=== PATIENT | male | born 1985 | race Caucasian/White ===

== ENCOUNTER 2016-06-22 13:14 | Inpatient (IN) | payer OTHER ==
[~2016-06-22] VITALS: Ht 170.2 cm; Wt 81.9 kg
--- NOTE | ~2016-06-22 | INDIVTXPLN ---
"PATIENT: EMELY BETHEA | | [facility] UNIT #: [id number] | [address] AGE/SEX: 31 M : 81 | [address] | [place] [id number] ADMIT/REG DATE: 06/22/16 | [facility] | ADTC | Individualized Treatment Plan Date: 06/29/16 Problem Statement/Issue Identified: Client has learned to deny or stuff feelings; needs to learn to identify and process feelings in a clean/sober manner. Goal: Client will learn how to identify and express feelings in a healthy, clean/sober manner. Objectives/Activities to achieve goal: 1. Client is to write each of his parents a feelings letter, separately, and process them with counselor. Due Date:07/04/16 Complete: Incomplete: 2. Client is to write his a feelings letter, process it with counselor and in family group. Due Date:07/04/16 Complete: Incomplete: Client signature Date Counselor signature Date Outcome/Measurement of Progress Towards Goal: Counselor's signature Date "
--- NOTE | ~2016-06-22 | INDIVTXPLN ---
"PATIENT: EMELY BETHEA | | [facility] UNIT #: [id number] | [address] AGE/SEX: 31 M : 81 | [address] | [place] [address] ADMIT/REG DATE: 06/22/16 | [facility] | Individualized Treatment Plan Date: 06/28/16 Problem Statement/Issue Identified: Client drank after getting angry, even though he is on probation, and did not reach out to anyone for help. Goal: Client will learn how to identify negative consequences of his drinking, attend AA/NA meetings, and meet men in recovery. Objectives/Activities to achieve goal: 1. Client is to complete the How To Get Started packet, process it with counselor and selected pages in group. Due Date: 07/02/16 Complete: Incomplete: 2. Client is to complete Step 1, process it with counselor and selected pages in group. Due Date:07/07/16 Complete: Incomplete: 3. Client is to attend AA/NA meetings, ask for and get at least 5 names and numbers of men in recovery and share that list with counselor. Due Date:07/17/16 Complete: Incomplete: Client signature Date Counselor signature Date Outcome/Measurement of Progress Towards Goal: Counselor's signature Date "
--- NOTE | ~2016-06-22 | INDIVTXPLN ---
"PATIENT: EMELY BETHEA | | [facility] UNIT #: [id number] | [address] AGE/SEX: 31 M : 81 | [address] | [place] [phone] ADMIT/REG DATE: 06/22/16 | ROOM: [facility] LOC: ADTC | ADTC | Individualized Treatment Plan Date: 07/12/16 Problem Statement/Issue Identified: Client needs to identify relapse warning signs, which may include control issues, stinking thinking and not being able to set boundaries, and develop a plan to deal with them as they arise. Goal: Client will learn how to take a look at his control issues, stinking thinking, as well as to learn to set boundaries and identify if any of these are relapse triggers and make a plan of how to avoid them. Objectives/Activities to achieve goal: 1. Client is to read and highlight the Letting Go of the Need to Control, Stinking Thinking and Arturo Baby booklets, and process what he learns from all of them with counselor. Due Date:07/20/16 Complete: Incomplete: 2. Client is to read and highlight all he can relate to in the Boundaries booklet, and process what he learns with counselor. Due Date:07/20/16 Complete: Incomplete: 3. Client is to read and highlight all he can relate to in the Dry Drunk Syndrome and Recovery of Chemically Dependent Families, as well as to complete the Relapse Prevention packet and process them with counselor. Due Date:07/20/16 Complete: Incomplete: Client signature Date Counselor signature Date Outcome/Measurement of Progress Towards Goal: Counselor's signature Date "
--- NOTE | ~2016-06-22 | RESCARESUM ---
"PATIENT: EMELY BETHEA M | | [facility] UNIT #: [id number] | [address] AGE/SEX: 31 M : 81 | [address] | [place] [phone] ADMIT/REG DATE: 06/22/16 | ROOM: [facility] LOC: ADTC | ADTC | Summary of Residential Care Primary Counselor: Agustina HAMLIN Date of Admission: 06/22/16 Date of Discharge: 07/20/16 Referral Source: Geothermal Field Technician, Maria G Griffin Primary Care Provider Prior to Admission: Self Admitting Diagnosis: F10.20 Alcohol Use Disorder, Severe; Z720 Tobacco Use; History of ADHD, per DR. [facility] Discharge Diagnosis: Same Goals Achieved: Emely struggled staying focused on his treatment, as he had outside people influencing him. He did eventually complete his initial paperwork, including the How to Get Started in Treatment, Step 1, and he asked for names and numbers of men in recovery. He stated he wrote feelings letters, read and highlighted several packets and booklets given to him to help him learn how to let go of control, and learn about changing his character flaws, however, we had so many other issues to deal with, none of these were ever processed. He worked on recovery maintenance, as well. Continued Obstacles to Sobriety/Relapse Issues: Self-will run riot, being controlling, relationships, not going to meetings or aftercare, not getting and calling a sponsor on a regular basis, not dealing with feelings, and not learning to work a good, strong program of recovery. Family Issues Addressed: We had a session with his , however, it was not productive, as they both have issues they need to work on in some type of treatment program. She also attended family education, however, at one point, we had to tell her to stop coming up here, not to come to any more meetings, and we took all visits and calls away, so he would be able to focus on himself, instead of her. Y Individual Therapy Y Group Therapy Y Educational Series on Substance Abuse Y Parents/Significant Others Attended Family Program N Acute Medical Problems During the Course of Treatment N Transferred to Hospital During the Course of Treatment Y Accepting of Substance Abuse Problem N Non-accepting of Substance Abuse Problem N Required Psychological or Psychiatric Consultation During the Course of Treatment Completed AA Step # 1 During This Level of Care Significant Incidences During Treatment: Emely was focused on his and his jainism, and it took his focus away from his treatment. His last weekend, we had to take away his PATIENT: EMELY BETHEA M | | [facility] UNIT #: [id number] | [address] [place] [address] AGE/SEX: 31 M : 81 | [address] | [place] [address] ADMIT/REG DATE: 06/22/16 | ROOM: [facility] LOC: [facility] | [facility] | Summary of Residential Care visits and calls, so he could focus on himself instead of them. Reason For Discharge: Y Completed Residential TX Goals and Ready For Next Level of Care N Left Tx Against Medical Advice/Treatment Goals Not Complete N Completed Residential Tx Goals But Refusing Continuing Care Recommendations N Discharged Due to Noncompliance/Treatment Goals not Completed N Discharged Earlier Than Planned Due to: Continuing Care Plan/Recommendations: N Intensive Partial Care Y Sponsor N Partial Care Y AA Meetings/NA Meetings Y Outpatient N Co-dependency Services N Therapeutic Community N 1/[address] N [address]/ [address] House N Mental Health Therapy N Marriage Counseling N Other Specific Continuing Care Plan: It is recommended that Emely attend aftercare here at [facility], beginning 07/26 @ 4:00 with Nuris Chanel, and go to group at 5:30 with Ruddy. It is further recommended that he attend 3-5 AA/NA meetings per week, get and call a sponsor on a regular basis, and learn how to work a strong program of recovery. PRIMARY COUNSELOR: BOUBACAR Barbosa"
--- NOTE | ~2016-06-22 | CLPRLASSUM ---
PATIENT: EMELY BETHEA | | [facility] UNIT #: [id number] | [address] AGE/SEX: 31 M : 81 | [address] | [place] [address] ADMIT/REG DATE: 06/22/16 | ROOM: [facility] LOC: ADTC | ADTC | Client Problem List/Assessment Summary Date: 06/28/16 Problems identified by the client: Client reported he drank after getting angry and being on probation. Problems identified by significant others: Same Client's Strengths: Client identified his strengths as: He is a good listener, caring and likes to help people. Problem List: Code: T Client needs to identify relapse warning signs and develop a plan to deal with them as they arise. Code: T Client does not "reach-out to others for help" and instead resumes using alcohol &/or drugs. Code: T Client needs to become familiar with basics of recovery as he relapsed and will benefit from working STEP 1 again. Code: T Client is experiencing family &/or significant other discord and distancing as a result of past alcohol &/or drug usage. Code Taylor: T: to be addressed during course of treatment O: problem noted, expected to resolve itself with abstinence--specific tx plan not required R: problem noted, will be referred upon discharge PRIMARY COUNSELOR: BOUBACAR Barbosa
--- NOTE | ~2016-06-22 | TXPLANREV ---
"PATIENT: EMELY BETHEA | | [facility] UNIT #: [id number] | [address] AGE/SEX: 31 M : 81 | [address] | [place] [phone] ADMIT/REG DATE: 06/22/16 | [facility]TC | Treatment Plan/Staffing Review Date: 07/18/16 Treatment plan was reviewed and determined appropriate as written: Yes Treatment plan was reviewed and the following changes/addition/deletions are necessary: Client is to continue working on treatment plan assignments. He is finishing up with his Relapse Prevention packet. Discharge plans were reviewed and determined appropriate as previously documented: Yes Discharge plans were reviewed and determined to be as follows: Client will be going to an apartment, attending aftercare here with Nuris Chanel and will be recommended to attend 3-5 AA/NA meetings per week, get and call a sponsor on a regular basis and work a strong program of recovery. Other pertinent issues discussed during this staffing review include: None Staff Present: Robert Costa PRIMARY COUNSELOR: BOUBACAR Barbosa Client Signature Counselor Signature Date Time "
--- NOTE | ~2016-06-22 | TXPLANREV ---
"PATIENT: EMELY BETHEA | | [facility] UNIT #: [id number] | [address] AGE/SEX: 31 M : 81 | [address] | [place] [phone] ADMIT/REG DATE: 06/22/16 | [facility] | [facility] | Treatment Plan/Staffing Review Date: 07/05/16 Treatment plan was reviewed and determined appropriate as written: Yes Treatment plan was reviewed and the following changes/addition/deletions are necessary: Client is to continue working on treatment plan assignments. He is now writing feelings letters. Discharge plans were reviewed and determined appropriate as previously documented: No Discharge plans were reviewed and determined to be as follows: Client plans to return home to his , and will be recommended to do aftercare here with us, attend AA/NA meetings, as well as to get and call a sponsor on a regular basis. Other pertinent issues discussed during this staffing review include: None at this time. Staff Present: Nuris Rosas PRIMARY COUNSELOR: BOUBACAR Barbosa Client Signature Counselor Signature Date Time "
--- NOTE | ~2016-06-22 | TXPLANREV ---
"PATIENT: EMELY BETHEA | | [facility] UNIT #: [id number] | [address] AGE/SEX: 31 M : 81 | [address] | [place] [phone] ADMIT/REG DATE: 06/22/16 | ROOM: [facility] LOC: ADTC | ADTC | Treatment Plan/Staffing Review Date: 07/11/16 Treatment plan was reviewed and determined appropriate as written: Yes Treatment plan was reviewed and the following changes/addition/deletions are necessary: Client is to continue working on treatment plan assignments. He is finishing up with feelings letters and will begin working on relapse prevention. Discharge plans were reviewed and determined appropriate as previously documented: Yes Discharge plans were reviewed and determined to be as follows: Client will return to his home, do aftercare here, be recommended to attend 3-5 AA/NA meetings, get and call a sponsor on a regular basis and learn how to work a strong program of recovery. Other pertinent issues discussed during this staffing review include: Client has struggled with whether or not to stay with his , and at this time, plans to stay with her and work on their marriage. Staff Present: Nuris Rosas PRIMARY COUNSELOR: BOUBACAR Barbosa Client Signature Counselor Signature Date Time "
--- NOTE | 2016-06-22 16:14 | NUR ---
ADMISSION NOTE Rights/Responsibilities: Copy given and explained to client. Signed and accepted by client. Client oriented to physical lay out of the ADTC unit, given Big Book and admission packet. A Bakari was assigned. Anival Client is a 31yr old male. Referred by court. Lives in [place], [place]. Brought to tx by s/o. DOC alcohol, last used 05/21/16. No allergies, No meds. S/O will participate in tx. Was searched and no contraband found. Initial paperwork given and guidelines gone over. Doctor has been notified.
--- NOTE | 2016-06-22 22:19 | NUR ---
Tech note : Client went for a walk and worked on some crafts. Client celebrated a tech's birthday and attended an onsite NA meeting. He was checked into his room, saw the DR and gave his first intro.
--- NOTE | 2016-06-23 04:55 | NUR ---
Bed note: Client was moitionless with eyes closed at all bed checks.
--- NOTE | 2016-06-23 12:19 | NUR ---
Group 1.5 Hr Rtio 2:20/Topics today were orientating a new client to group rules and goals. Relapse prevention was also a topic. Client was orientatedto group rules and goals. He proceded to blame his for all his problems as he manges money well and she dosent and a lot of other things other than looking at his own stuff. He appears to like being the marter and everyond should feel sorry for him. He also worries about what people think about him.
--- NOTE | 2016-06-23 14:00 | NUR ---
INITIAL SESSION 1 HR: Clt was oriented to tx plans, schedules and what to expect from tx, this counselor and the program. He has been here previously, and is now on probation for his 4th offense DUI. He is to a woman 12 yrs younger than he and isn't sure that was his best choice. He also quoted several Bible passages and stated going to judaism 3 times a week was keeping him sober, but when asked how often he was drinking he stated he wasn't sure, but he wasn't able to remain sober for any longer than a couple-4 months. He is to be work on initial paperwork.
--- NOTE | 2016-06-23 14:34 | NUR ---
Tech Note: Client attended Spiritual Enrichment in the morning and went for an outdoor walk in the afternoon. Client stated that he is working on journaling.
--- NOTE | 2016-06-23 15:50 | NUR ---
Education 1 Hour: Client heard from a recovery speaker who shared his experience, strength and hope.
--- NOTE | 2016-06-23 16:22 | NUR ---
Step education/ Focus was on step 10 "continued to take personal inventory and when we were wrong promply admitted it." Gave them a set of questions to answer on paper and then as a group answered the first 3 and the rest each person shared what they had written. One of the questions was when was the last time I caught myself doing or saying something I did not feel good about? This client participated. He shared how his whole life he has been surrounded by negative people but he is learning to be positive. He was happily surprised when he came here that others were looking for positive also.
--- NOTE | 2016-06-23 18:31 | NUR ---
Education: 1 Hour. Clients watched Picking up the Pieces for education.
--- NOTE | 2016-06-23 23:16 | NUR ---
tech note: client went on walk for recreation,participated in Guided Meditation & attended onsite AA meeting. SE: got sponsor @ AA meeting.
--- NOTE | 2016-06-24 04:06 | NUR ---
Bed note: Client was moitionless with eyes closed at all bed checks.
--- NOTE | 2016-06-24 10:56 | NUR ---
FAMILY CONTACT: Clanton's was called. She plans to come to visit, to family [facility] and we did discuss her doing codep tx. Will look into some funding for her.
--- NOTE | 2016-06-24 11:30 | NUR ---
GROUP 1.5 HRS. 1:10 Group discussion included cravings and reservations as well as consequences of use. Peers processed from the HOW TO GET STARTED IN TREATMENT assignment. This client is very verbal and repeatedly brings topic back to himself. He quoted the bible and is noted to be carrying a bible rather than his big book. He was redirected to put his journal now at 1100 as he was looking at his schedule.
--- NOTE | 2016-06-24 13:00 | NUR ---
PEER REVIEWS 1 HR: Clt participated in peer review process and was able to give open and honest feedback to those receiving a review.
--- NOTE | 2016-06-24 13:28 | NUR ---
Tech Note: Client went on group walk for recreation. Clt is working on journaling and Relapse Prevention.
--- NOTE | 2016-06-24 23:01 | NUR ---
TECH NOTE: Client participated in reading guidelines, watched tv/movies. attended optional off site AA meeting SE: talk with peers
--- NOTE | 2016-06-25 04:47 | NUR ---
BED NOTE: Client was in bed, motionless with eyes closed all three bed checks.
--- NOTE | 2016-06-25 16:28 | NUR ---
Tech Note: Client is working on Getting Started and had a visitor. Clt was late to morning Community Meeting.
--- NOTE | 2016-06-25 23:35 | NUR ---
TECH NOTE: Client played Catch Phrase for REC, attended off site AA meeting, and watched TV/movies. Client was late to community meeting and walk to meeting. SE: visits
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
--- NOTE | 2016-06-26 04:18 | NUR ---
Bed Note: Clt lay motionless in bed with eyes closed showing no distress at last two bed checks. The first bed check clt was awake talking on phone to per counselor.
--- NOTE | 2016-06-26 15:58 | NUR ---
Tech Note: Client participated in Big Book Study and stated that he is working on, "How to Get Started in Treatment."
--- NOTE | 2016-06-26 22:41 | NUR ---
Client attended the A.A.Panel and participated in Community Clean. Client also attended the MONITOR AND STORAGE BIN TENDER meeting. SE:Answered Prayers
--- NOTE | 2016-06-27 04:02 | NUR ---
BED NOTE: Client was in bed, and motionless at all three bed checks.
--- NOTE | 2016-06-27 10:03 | NUR ---
Tech notes: Client is working on BB
--- NOTE | 2016-06-27 11:30 | NUR ---
AM Group 1.5hr/ 21:2 Clients all read The Wall an allegory and discussed how it related to the 12 steps/recovery. Each client aniyah and shared their wall.
--- NOTE | 2016-06-27 13:59 | NUR ---
Educational note: Client attended speaker for educationLaci
--- NOTE | 2016-06-27 16:00 | NUR ---
RECOVERY 101 1 HR/ Clients all filled out consequences list to look at each chemical they have ever used and how many consequences were experiences with each drug. Many shared what they learned from this and their top 3 consequences, they also discussed early stage symptoms of their addiction. Counselor asked the group what would be a definition that includes all stages and this was discussed as well at stages of Denial, Anger, Compliance/defiance, admittance, acceptance and Surrender.
--- NOTE | 2016-06-27 20:38 | NUR ---
Education: 1 Hour. Client attended lecture on "Adult Children of Alcoholics" presented by staff.
--- NOTE | 2016-06-27 22:57 | NUR ---
Tech Note: Client played a game for rec and attended the on unit N.A.Meeting. SE:_Reading in the Big Book.
--- NOTE | 2016-06-28 04:17 | NUR ---
Bed Note: Client was in bed, and motionless at all three bed checks.
--- NOTE | 2016-06-28 13:11 | NUR ---
Tech Note: Nutritional Services presented information for the 1:00 speaker meeting. Client is working on the Big Book.
--- NOTE | 2016-06-28 14:15 | NUR ---
GROUP 1.5 HRS. 1:10 Clients oriented new peer to purpose and rules of group. Discussion included step 1 assignment and good-bye letter to addiction. This client did not participate or offer any feedback.
--- NOTE | 2016-06-28 16:25 | NUR ---
Relapse Prevention, 04/08, 1.0 hours, Client attended and actively participated in relapse prevention education which focused on top 5 relapse triggers and how to avoid them.
--- NOTE | 2016-06-28 17:35 | NUR ---
Education Note: Topic was "Berwick From Shame" presented by Ely.
--- NOTE | 2016-06-28 22:48 | NUR ---
TECH NOTE: Client did crafts/beads for REC and attended on site AA meeting. S/O was at AA meeting SE: AA meeting
--- NOTE | 2016-06-29 04:00 | NUR ---
BED NOTE: Client was in bed, motionless with eyes closed all bed checks.
--- NOTE | 2016-06-29 10:43 | NUR ---
Tech notes: Client is working on Getting started
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
--- NOTE | 2016-06-29 16:00 | NUR ---
Education 1 Hour: Client watched the video, "Marijuana" by Jerry Kim.
--- NOTE | 2016-06-29 17:23 | NUR ---
SPIRITUAL EDUCATION; Client's took TOWARD SPIRITUALITY BOOKS again this week and improved their presentations took on new participants to replace those who weren't here this week, and presented their refined skits to those staff available to watch. Excellent presentations!
--- NOTE | 2016-06-29 19:06 | NUR ---
Education 1HR: Clt attended lecture given by counselor on boundaries.
--- NOTE | 2016-06-29 22:11 | NUR ---
Tech note : Client went for a long walk for rec and attended an onsite NA meeting. SE: Education
--- NOTE | 2016-06-30 04:04 | NUR ---
Bed note: Client was in bed motionless, with eyes closed at all bed checks.
--- NOTE | 2016-06-30 11:30 | NUR ---
AM GRP 1.5 HRS, Ratio 1:10/ Clt sat quietly, until he became angry and popped off at a peer for talking to much. He got very mouthy with him, telling the peer he needs to shut the "f" up, give others a chance to talk and stop asking so many questions. Clt then went on to give everyone else feedback.
--- NOTE | 2016-06-30 13:00 | NUR ---
FAMILY SESSION 1 HR: Clt and his were present. They struggle w/ interrupting each other, and does see they heed professional help. His is planning to have an eval for codep done, and she is in dire need of it. They interrupted each other, they talked over each other, so heard they need to work on communication skills.
--- NOTE | 2016-06-30 15:20 | NUR ---
Tech Note: Client participated in Spiritual Enrichment in the morning and went for an outdoor walk in the afternoon. Client followed programming.
--- NOTE | 2016-06-30 17:45 | NUR ---
FAMILY EDUCATION 3 hrs. Client was accompanied by his S/O. They took part in the discussion on the disease concept and the progression and consequences.
--- NOTE | 2016-06-30 19:11 | NUR ---
Education 1HR: Clt watched half of video "Pleasures Unwoven" with staff present.
--- NOTE | 2016-06-30 23:01 | NUR ---
Tech note: Clt played a game for rec, attended GM and onsite AA mtg. Clt had clothes brought in by s/o. SE was family grp
--- NOTE | 2016-07-01 04:23 | NUR ---
Bed Note: Clt lay motionless in bed with eyes closed showing no distress at all bed checks.
--- NOTE | 2016-07-01 12:53 | NUR ---
GROUP 1.5 HR/ 11:1 Clients all heard peers share GS/Step 1 packets and all introduced selves and went over group rules for newcomers. This client did give good feedback, not pushing anglican but relating to addiction.
--- NOTE | 2016-07-01 12:59 | NUR ---
Tech Note: Client is working on Feelings Letters.
--- NOTE | 2016-07-01 13:00 | NUR ---
PEER REVIEWS 1 HR: Clt participated in peer reviews and took a risk to give open and honest feedback to those receiving a review.
--- NOTE | 2016-07-01 15:31 | NUR ---
Education Note: Client watched 2nd half of Pleasure Unwoven.
--- NOTE | 2016-07-01 22:15 | NUR ---
Tech note : Client talked on the phone, watched tv and played games with peers.
--- NOTE | 2016-07-02 04:07 | NUR ---
Bed note: Client was in bed with eyes closed and no distress at all bed checks.
--- NOTE | 2016-07-02 12:09 | NUR ---
IS 1 HR: Clt asked about feelings letters, stating his letter to his is about 10 pages long. He heard to own his behavior, own his addiction, and he can mention some things about hers, but all that he wants to say to her will need to be done in session. He rambles and goes on and on about every thing, so had to be stopped. He shared about his exwife and this not getting along, and that he is 12 yrs older than his now , so he feels like her father. He heard we will get her back in for another family session.
--- NOTE | 2016-07-02 16:24 | NUR ---
Tech Note: Client attended N.A.Panel and is working on FL's. Client had a visit today as well.
--- NOTE | 2016-07-02 22:14 | NUR ---
Tech note : Client worked on [employer], [employer] or watched sports for rec this evening. Client walked to an offsite AA meeting, his S/O also attended the meeting.
--- NOTE | 2016-07-03 04:05 | NUR ---
Bed note: Client was in bed with eyes closed with no distress at all bed checks
--- NOTE | 2016-07-03 15:25 | HP ---
ADMIT: 06/22/2016 RM/LOC: [facility] MR#: [id number] [id number] [place] [address] History and Physical SEX: M AGE: 31 : 1985 DATE OF SERVICE: CHIEF COMPLAINT: Alcohol dependency. HISTORY OF PRESENT ILLNESS: Emely is 31-year-old, , white male, admitted to residential level treatment at [facility]. He presents to treatment after recent charges in January 2016 for fourth offense DUI. He was amended to a third offense DUI. He was sentenced to 30 days in fpc which he has already completed. Completion of a residential level treatment program, probation, anger management, and was from his family. Emely's drug of choice on admission is alcohol. He first started drinking at 11 years of age with friends. In max high, he drank a couple of times over the summer. In high school, he states he never drank as he was in the [employer]. From [age], he would drink every weekend around a 12 pack to intoxication. Heaviest drinking was [age] when he would have around 18 beers or more on weekends. Described himself as a weekend binge drinker. He states he then got sober for about 9 months and relapsed on alcohol. He states for the last couple of years, he has been drinking more sporadically. His DUI occurred in January 2016. His last drink was 05/21/2016. No history of alcohol withdrawal seizures, DTs, or hallucinations are noted. Second drug of choice is denied. He denies any illicit drugs. PAST MEDICAL HISTORY: Operations none. Illnesses include ADHD when he was young. MEDICATIONS: None. ALLERGIES: INCLUDE SEASONAL. SOCIAL HISTORY: Is that of a 31-year-old male. He has been and once and has remarried. He has no children with his current and has one daughter with his ex-. He was a prior smoker but quit smoking on 05/27/2016. FAMILY HISTORY: Alcohol and marijuana in his father and his mother has a history of marijuana and methamphetamine dependency. His father is currently in recovery. REVIEW OF SYSTEMS: Negative. PHYSICAL EXAMINATION: VITAL SIGNS: He is 5 feet 7 inches with a weight of 81.9 kg, blood pressure 135/82 with a pulse of 63 and a temp of 95.1. GENERAL APPEARANCE: Is that of a 31-year-old male who is alert and oriented, in no acute distress. He is athletic-appearing. HEENT: Pupils are reactive. TMs normal. Throat normal. NECK: Normal. HEART: Regular without murmur. ADMIT: 06/22/2016 RM/LOC: [facility] MR#: [id number] [address] [place], [place] [id number] [place] [address] History and Physical SEX: M AGE: 31 : 1985 LUNGS: Clear. ABDOMEN: Soft, nontender, benign. GENITOURINARY: Deferred. RECTAL: Deferred. EXTREMITIES: No clubbing, cyanosis, or edema. NEURO: Normal including light touch, strength, DTRs. ASSESSMENT: 1. Alcohol use disorder, severe. 2. Tobacco use disorder, in remission. 3. History of attention deficit hyperactivity disorder. PLAN: We will place him on a multivitamin and thiamine given his history of alcohol abuse and dependency, place him on Claritin for seasonal allergies. We will proceed with drug and alcohol abuse dependency treatment and counseling. Further evaluation and management based on his course during hospitalization. Please see his hospital record for the details. Craig Soares MD/ kelechi JOB #: [id number] CC: Craig Soares, Attending Physician FAMILY PHYSICIAN, Family Physician
--- NOTE | 2016-07-03 16:29 | NUR ---
Tech Note: Client attended adventism in the morning and received a visit in the afternoon. Client stated that he is working on writing Feelings Letters.
--- NOTE | 2016-07-03 22:34 | NUR ---
tech note: Client attended onsite AA Panel & PROCEDURE TECH meeting.Client participated in Community Clean & watched tv. SE: visit.
--- NOTE | 2016-07-04 04:29 | NUR ---
tech note: client was motionless in no distress at all bed checks.
--- NOTE | 2016-07-04 10:16 | NUR ---
Tech Notes: Client is working on Fl's
--- NOTE | 2016-07-04 11:02 | NUR ---
Education Note: Client watched video for education today.
--- NOTE | 2016-07-04 12:55 | NUR ---
Morning Group, 03/31, 1.5 hours, Client attended and actively participated in group. Client shared how his christopher in God has led him to be a better person and the will to get help.
--- NOTE | 2016-07-04 19:14 | NUR ---
Education: 1 Hour. Client attended "Communications" lecture presented by staff.
--- NOTE | 2016-07-04 21:00 | NUR ---
FAMILY EDUCATION 3 HRS., GROUP 2 HRS. 1:6 Client was accompanied by his . They took part in the discussion on the family roles, codependency and detachment. Client related to family hero role. They processed feelings letters. shared example in her letter of when client was so drunk and sick she was afraid he might . She later went on to state that he is not alcoholic. She defines alcoholic as someone who drinks every day like her mother. Counselor and a couple of peers attemped to offer feedback but both client and his became defensive. One peer and another family member defended client. Client verbalizes that he is alcohlic. then states well she is also alcoholic and has been sober the same 43 days as client.
--- NOTE | 2016-07-04 23:30 | NUR ---
Client attended N.A.Meeting and had family SE:Family
--- NOTE | 2016-07-05 04:20 | NUR ---
Bed note: Client was in bed with eyes closed with no distress at all bed checks
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
--- NOTE | 2016-07-05 15:40 | NUR ---
Tech Note: Client participated in light stretching for monring exercise and went for an outdoor walk in the afternoon. Client stated that he is working on reading the BigBook.
--- NOTE | 2016-07-05 16:00 | NUR ---
IS 1 HR: Nhung was confronted on the way he caught me in the wheat asking when his next "anything with you..." is. He heard it came off very agressive. He denied he was being agressive, so heard to take a look at it. Processed nhung's BPS, and then he stated he is working on feelings letters, but doesn't know what to say to his Mom. He heard to just start writing and it will come to him.
--- NOTE | 2016-07-05 17:12 | NUR ---
Relapse Prevention, 04/08, 1.0 hours, Client attended and actively participated in relapse prevention education which focused on high risk situations.
--- NOTE | 2016-07-05 19:22 | NUR ---
Education note: 1 hour watched video "enabler".
--- NOTE | 2016-07-05 19:29 | NUR ---
education note: 1 hour lecture by [facility] on hiv/aid/std. plus clients wwere tested for HIV.
--- NOTE | 2016-07-05 22:07 | NUR ---
Tech note: Client went for a long walk for rec, participated in guided meditation and attended an onsite AA meeting.
--- NOTE | 2016-07-06 05:29 | NUR ---
Bed note : Client was in bed with eyes closed and no movement at all bed checks.
--- NOTE | 2016-07-06 12:27 | NUR ---
AM GROUP 11:1/1.5 HR: Client and peers helped to ORIENT A NEW PEER TO GROUP GUIDELINES, GOALS AND OBJECTIVES. Client and peers heard several individuals process assignments and some discussion on the disease concept. This client is quick to give feedback, some of which is on target but most of which comes across as "all knowing."
--- NOTE | 2016-07-06 13:24 | NUR ---
Tech Note: Outside speaker [place] spoke at 1300. Client attended and is working on a "vent letter".
--- NOTE | 2016-07-06 17:18 | NUR ---
SPIRITUAL EDUCATION 1 HR. Topics today were clarifying the differences between spirituality and church, and playing the spiritual challenge game where they are asked thought provoking open ended questions. It is meant to inspire spiritual line of thought.
--- NOTE | 2016-07-06 22:39 | NUR ---
Tech Note : Client participated in rec by playing catch phrase and attended an onsite NA meeting.
--- NOTE | 2016-07-06 23:34 | NUR ---
Education: 1 Hour. Client attended "Disease Concept" presented by counselor.
--- NOTE | 2016-07-07 05:35 | NUR ---
Bed Note: Client was motionless with eyes closed at all bed checks.
--- NOTE | 2016-07-07 10:39 | NUR ---
Tech Note: Client participated in light stretching for morning exercise. Client stated that he is working on writing Feelings Letters. Client's called the tech station at 0730 stating that she needed to talk to the cient and that it was an emergency. Counselor on duty gave permission for the call to be received. Client talked to his and then went to breakfast with the group.
--- NOTE | 2016-07-07 13:50 | NUR ---
PEER REVIEWS 1 HR: Clt participated in peer reviews and took a risk to give open and honest feedback to those receiving a review. The last half hour of group clients talked about loved ones and dying.
--- NOTE | 2016-07-07 15:47 | NUR ---
Education 1 Hour: Client heard from a member of the recovery community who shared his experience, strength and hope.
--- NOTE | 2016-07-07 16:31 | NUR ---
Step Education 1 hr/ Focus was on step 12 "having had a spiritual awakening", each person completed a set of questions on paper and then we discussed. This client participated.
--- NOTE | 2016-07-07 19:42 | NUR ---
Tech note: client was off the unit for [employer] banquet and speaker event
--- NOTE | 2016-07-08 11:30 | NUR ---
Group 1.5 hr/ 10:1 Clients all heard peers share feelings letters and this client was attentive, heard others talk about parents not being there for them. He also shared a letter to his mom, who was a meth addict and not their for them, client was tearful and forgives mom he voiced. Client also shared a letter to his dad making ammends for how his addiction disappointed and hurt his dad. Peers shared he is very spiritual and good for them to talk to (gali and rohit in group voiced appreciation)
--- NOTE | 2016-07-08 13:44 | NUR ---
Tech Note: Client with with group on an outdoor walk. Client is working on Feelings Letters.
--- NOTE | 2016-07-08 16:00 | NUR ---
Education Note: Client watched "How to Sabotage Your Treatment"
--- NOTE | 2016-07-08 16:35 | NUR ---
PEER REVIEWS 1.0 HR: Clt participated in peer reviews and took a risk to give open and honest feedback to those receiving a review.
--- NOTE | 2016-07-08 22:55 | NUR ---
TECH NOTE: Client participated in reading [employer], watched tv/movies. SE: Lunch
--- NOTE | 2016-07-09 04:04 | NUR ---
Bed Note: Clt lay motionless in bed with eyes closed showing no distress at all bed checks.
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
--- NOTE | 2016-07-09 15:02 | NUR ---
Tech Note: Client is working on the [employer] Book and had an appt. with his counselor. Clt had visits.
--- NOTE | 2016-07-09 22:54 | NUR ---
TECH NOTE: Client played a game for REC, attended off site AA meeting, watched TV/movies SE: visits
--- NOTE | 2016-07-10 04:46 | NUR ---
Bed Note: Clt lay motionless in bed with eyes closed showing no distress at all bed checks.
--- NOTE | 2016-07-10 15:18 | NUR ---
Tech Note: Client participated in [employer] and stated that he is working on writing a vent letter. Client attended the medical center and received a visitor.
--- NOTE | 2016-07-10 22:50 | NUR ---
Tech Note: Client attended A.A.Panel and participated in community clean. SE:Visitation
--- NOTE | 2016-07-11 04:50 | NUR ---
Client was motionless with eyes closed at all bed checks.
--- NOTE | 2016-07-11 10:19 | NUR ---
Tech notes: Client is working on Vent letter
--- NOTE | 2016-07-11 15:45 | NUR ---
Morning Group, 1.5 hours, 04/09 Clients all participated in 2 family sculptures with role-playing, feedback, and how they related.
--- NOTE | 2016-07-11 16:03 | NUR ---
RECOVERY EDUCATION 1 HR. Todays topic was on denial; good, bad, and levels, life problems being 85 percent of recovery, and distorted thinking patterns that can keep us stuck.
--- NOTE | 2016-07-11 16:29 | NUR ---
Education note: Client watched video "[address] [facility] [address]"
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
--- NOTE | 2016-07-11 18:41 | NUR ---
Education: 1 Hour. Client attended "Feelings" lecture given by staff.
--- NOTE | 2016-07-11 22:07 | NUR ---
Tech note: Client participated in rec by playing tribr outside. Client attended an onsite NA meeting.
--- NOTE | 2016-07-12 04:14 | NUR ---
BED NOTE: client was in bed, motionless with eyes closed all three bed checks.
--- NOTE | 2016-07-12 08:30 | NUR ---
COUNSELOR NOTE Clanton knocked on closed door, but heard this counselor was busy. He came back within the next half hour and knocked again, asking if this counselor is still busy, heard yes, but asked what he wanted. He wanted to tell me about his coming to see him, his Refrigeration Insulator convincing him he needs to not break up his marriage, etc. and left a love letter she had written to him. Nhung heard we will need to talk about it later.
--- NOTE | 2016-07-12 12:29 | NUR ---
A.M. 1.5 hr group/ratio 1:11/ Group heard a 2 getting started assignments and a feelings letter. Focus was on how our addiction affects kids and significant others, abuse, and how important it is to express feelings. This client shared feedback.
--- NOTE | 2016-07-12 14:00 | NUR ---
IS 1 HR: Nhung processed his Step 1, but his pages 10-11 were not specific. He had come last week and stated he needed to get away from his , then today stated his friends and dining server convinced him he needs to make his marriage work, so he's going to listen to what they are saying. Nhung was confronted on the fact that he flip flops and during the week he gains some clarity on his relationship then over the weekend goes back to listening to what they are telling him to do. He was asked what he's getting out of tx and and he immediately came up with a Bible verse, so heard tx isn't about the Bible, it's about the Big Book. Carlost heard he needs to keep his Bible in his room, and read his BB. He then heard staff isn't sure he's amenable to tx, and that we will be staffing him again about what needs to happen to him.
--- NOTE | 2016-07-12 16:14 | NUR ---
Relapse Prevention, 04/06 ratio, 1.0 hours, Client attended and actively participated in relapse prevention education which focused on personal reactions to high risk situtations such as personal reactions vs. personal responses, addictive thinking, irresponsible thinking, addictive behavior, irresponsible behavior, instant gratification, and emotional consequences to thoughts and actions.
--- NOTE | 2016-07-12 16:29 | NUR ---
Tech Note: Client listened to speaker Craig share his experience, strength and hope. Client is working on the Big Book.
--- NOTE | 2016-07-12 19:24 | NUR ---
Education : 1 hour lecture given by counselor on feelings.
--- NOTE | 2016-07-12 22:11 | NUR ---
Tech note: Client played catchphrase for rec, participated in guided meditation and attended AA meeting. SE:shukri w/counselor
--- NOTE | 2016-07-13 04:22 | NUR ---
Bed note: client was in bed with eyes closed and no distress at all bed checks.
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
--- NOTE | 2016-07-13 10:01 | NUR ---
Tech notes: Client is working on [employer] and lots more
--- NOTE | 2016-07-13 13:28 | NUR ---
Education note: Client watched video
--- NOTE | 2016-07-13 14:29 | NUR ---
Nhung's came to our unit asking to talk to someone. [facility] Accounting Coordinator was called. Accounting Coordinator asked the nurse to sit in on the session. She stated she visited clt's document review attorney and customs house broker. She said customs house broker is going to come a session with clt and his counselor. She quoted what the document review attorney said about the law of not being able to force into a [address]. I said we don't force anyone but do make recommendation and PO may requirement follow the recommendations. Encourage her to take care of self and follow through with eval. Asked her to not come on the unit for the rest of the week. Counselor will contact if visit allowed. Talked nhung has been distracted throughout his tx and focus more her that his addiction and needs for tx.
--- NOTE | 2016-07-13 16:21 | NUR ---
SPIRITUAL EDUCATION 1 HR. Todays topic was the ADDICTIVE SELF vs. SPIRITUAL SELF. We held discussion on who we are in our addiction vs who we are in recovery and contrasted the two.
--- NOTE | 2016-07-13 18:31 | NUR ---
Education: 1 hour lecture on self esteem given by counselor
--- NOTE | 2016-07-13 22:45 | NUR ---
Client did beads for rec and attended N.A.Meeting. SE: Education
--- NOTE | 2016-07-14 03:59 | NUR ---
Bed note: client was in bed with eyes closed and no distress at all bed checks.
--- NOTE | 2016-07-14 11:30 | NUR ---
AM GRP 1.5 HRS, Ratio 1:10/ Clt offered great feedback to peers, and even quoted the Big Book. He heard it is good to hear him focusing on himself, and that maybe he shouln't visit anyone or call anyone this weekend, as he needs to continue focusing on himself. Clt became angry and shut down. He heard it won't be a punishment, but more so a learning process to take car of himself.
--- NOTE | 2016-07-14 14:00 | NUR ---
COUNSELOR NOTE Nhung was pulled into environmental science program director's office, and we discussed w/ him the importance of taking care of himself and figuring out how to set boundaries, and not let other people get in his head. He was asked if he's willing to take this weekend and not get visits or phone calls and allow the program to work for him. He was very reluctant but eventually agreed that he was willing to take the challange. Let it also be noted, that clanton did become agitated and commented that we were like some old hens, just pecking at him, and at one point when he was sharing something, this counselor stepped in, as he tends to carry on for several minutes, and he got angry telling me I was interrupting him. Another time, he blamed this counselor for trying to break him and his up. He heard that is furthest from the truth.
--- NOTE | 2016-07-14 15:23 | NUR ---
Tech Note: Client participated in Spiritual Enrichment in the morning and went for an outdoor walk after lunch. Client stated that he is working on, "Relapse Prevention."
--- NOTE | 2016-07-14 15:53 | NUR ---
COUNSELOR NOTE Nhung's called several times and left messages (7 times) in 2 days, and at one point told this counselor she cannot keep her and her away from each other, and that there are laws protecting them. She was contacted and heard we will be staffing her to decide whether or not she will be allowed to come visit.
--- NOTE | 2016-07-14 16:14 | NUR ---
Step ed. 1 hr/ focus was on step one and powerlessness. Each person answered a set of questions on paper and then we discussed out loud. This client participated.
--- NOTE | 2016-07-14 16:14 | NUR ---
Education 1 Hour: Client heard a presentation on cross addiction.
--- NOTE | 2016-07-14 23:00 | NUR ---
TECH NOTE: Client did newcommer bookmarks for REC, participated in guided meditation, and attended AA meeting. SE: education
--- NOTE | 2016-07-15 01:20 | NUR ---
1 HR EDUCATION: Client watched a video "Say Yes to Life" by Father Franco Fitzgerald
--- NOTE | 2016-07-15 04:40 | NUR ---
Bed Note: CLt lay motionless in bed with eyes closed showing no distress at all bed checks.
--- NOTE | 2016-07-15 10:30 | NUR ---
COUNSELOR NOTE Clt's was called and informed of the no visits and no calls this weekend. She did not argue, she listened and was given kudo's for understanding. It was voiced to her to follow thru w/ whatever recommendation her counselor gives her next week at her evaluation.
--- NOTE | 2016-07-15 10:35 | NUR ---
IS 1 hr: With all issues surrounding clt and his , it was staffed and decided and clt agreed to no visits or calls. This was done in one of the SEVERAL mini sessions with clt this week.
--- NOTE | 2016-07-15 11:30 | NUR ---
GROUP 1.5 HRS. 1:10 Clients participated in orienting new peers to purpose and rules of group. Discussion included consequences of addiction including the effects on family and loved ones as well as feelings and acceptance. Client appropriately confronted peer on his angry behaviors last night.
--- NOTE | 2016-07-15 14:49 | NUR ---
PEER REVIEWS 1.5 HRS: Clt participated in peer review process and received his own. He heard he tries to take on other's problems, likes ot have power and control, is obnoxious and needs to be heard, needs to work on himself, is codependent, not ready to accept change, is opinionated, his episcopalian makes him judgemental, is hurt, not open, quick to react, afraid of failing, thinks of other first, likes to joke, is hard-headed and thin-skinned. He felt glad, afraid, hurt and sad.
--- NOTE | 2016-07-15 16:17 | NUR ---
Tech Note: Clt watched "Relapse" for afternoon video. Clt is working on [email or web address].
--- NOTE | 2016-07-15 22:37 | NUR ---
Tech note: Client watched tv and movies. client attended an offsite AA meeting.
--- NOTE | 2016-07-16 05:18 | NUR ---
Bed note : Client was in bed motionless with eyes close at all bed checks.
--- NOTE | 2016-07-16 15:34 | NUR ---
Tech Note: Client attended A.A.Meeting at [facility] and [place] and then helped with the clubhouse cleaning, ate lunch, and listened to a speaker. Client is working on Relapse Prevention
--- NOTE | 2016-07-16 20:40 | NUR ---
tech note: Client played a game for recreation & attended offsite AA meeting.Client talked on the phone & watched tv. SE: Movie.
--- NOTE | 2016-07-17 05:20 | NUR ---
Bed note: Client was in bed motionless with eyes closed at all bed checks.
--- NOTE | 2016-07-17 16:18 | NUR ---
TECH NOTE: Client participated in Chapter 5 of Big Book study, attended sikh and watched tv/movies
--- NOTE | 2016-07-17 22:52 | NUR ---
tech note: client attended AA Panel & [employer]. Client participated in Community Clean. SE: All Day.
--- NOTE | 2016-07-18 04:34 | NUR ---
Bed Note: Clt lay motionless in bed with eyes closed showing no distress at all bed checks.
--- NOTE | 2016-07-18 11:11 | NUR ---
Tech notes: Client is working on [employer].
--- NOTE | 2016-07-18 14:25 | NUR ---
Morning Group, 03/28 ratio, 1.5 hours, Client attended and actively participated in group discussion. Client offered feedback to a client regarding scripture in the bible.
--- NOTE | 2016-07-18 15:38 | NUR ---
Education note: Client attended speaker for education, Hermila on Tobacco
--- NOTE | 2016-07-18 16:00 | NUR ---
Recovery 101 1 hr/ Clients all participated in reading, highlighting and discussing the Big Book on areas about honest, acceptance, living in problem vs living in solution, resentments, 1/2 measures, and the 12 promises.
--- NOTE | 2016-07-18 18:12 | NUR ---
Education: 1 hour lecture given by counselor on "forgiveness"
--- NOTE | 2016-07-18 22:21 | NUR ---
Tech note : Client went on a walk for rec and attended an onsite NA meeting. SE; All day
--- NOTE | 2016-07-19 04:14 | NUR ---
Bed note: Client was in bed with eyes closed and no distress at all bed checks.
--- NOTE | 2016-07-19 11:30 | NUR ---
GROUP 1.5 HRS. 1:9 Clients participated in orienting new peer to purpose and rules. Discussion included discharge plans and the importance of aftercare plan. Peer processed HOW TO GET STARTED IN TREATMENT assignment. This client was asked about his aftercare plan as he leaves tomorrow. Client went in to great detail about his work plans, and living arrangements and congregational. He stated he has a sponsor but when specifically asked about mtgs. and outpatient treatment, he stated he doesn't know if he will have time.
--- NOTE | 2016-07-19 13:09 | NUR ---
Tech Note: Client participated in light stretching for morning exercise and went for an outdoor walk in the afternoon. Client stated that he is working on, "Malachi' Thinkin" and "Arturo Baby."
--- NOTE | 2016-07-19 13:34 | NUR ---
Education One Hour: Client heard a presentation on Sexually Transmitted Disease.
--- NOTE | 2016-07-19 16:05 | NUR ---
Relapse Prevention Education, 1.0 hours, Client attended and actively participated in relapse prevention education which focused on a Relapse Prevention Quiz and discussion over the answers.
--- NOTE | 2016-07-19 17:16 | NUR ---
EVALUATION 2 HR: Client attended evaluation and completed testing instruments and ASI but left before the interview. She has not returned but needs to complete the interview process so that adaquate recommendations can be made.
--- NOTE | 2016-07-19 20:26 | NUR ---
educatio note: 1 hour lecture by counselor on" what gutiérrez are you willing to pay"
--- NOTE | 2016-07-19 22:32 | NUR ---
Tech note: Client attended the Alumni meeting, participated in guided meditation and attended an onsite AA meeting. SE; [place] meeting
--- NOTE | 2016-07-20 04:55 | NUR ---
Bed note: Client was in bed with eyes closed and motionless at all bed checks.
--- NOTE | 2016-07-20 09:00 | NUR ---
FINAL SESSION 1 HR: Carlost shared that he did fine all weekend w/o seeing his and not making any phone calls. He stated his repair weaver came, but he only talked to him for a couple minutes. We did his continued care plan and set up his aftercare. Clt was given a coin and completed thru tx.
--- NOTE | 2016-07-20 10:33 | NUR ---
DISCHARGE NOTE Client left tx with his boss, all personal belongings were sent with. Discharge instructions gone over and copy given.
--- NOTE | 2016-08-08 16:15 | NUR ---
Individual Therapy, 1.0, This session focused on completing outpatient paperwork and discussion about how things have been going since he left residential. 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 Client is getting along with his and has been following his christopher and using prayer to cope with things.
--- NOTE | 2016-08-25 08:16 | DS ---
ADMIT: 06/22/2016 RM/LOC: Yesy [facility] MR#: [id number] [facility] [address] [place] [id number] EMELY BETHEA [address] [place] [id number] General Discharge Summary SEX: M AGE: 31 : 1985 ADMISSION DATE: 06/22/2016 DISCHARGE DATE: 07/20/2016 INDICATION FOR HOSPITALIZATION: Emely is a 31-year-old, , white male, admitted to residential level treatment at [place] on June 22, 2012. He spent 30 days in skilled nursing prior to coming to treatment for 4th offense DUI amended to 3rd offense. Emely's drug of choice on admission was alcohol. Please see his admission H and P for the details regarding his history of present illness, past medical history, physical exam, and assessment at time of hospitalization. HOSPITAL COURSE: On admission, Emely was started on multivitamin and thiamine given his history of alcohol abuse dependency. During treatment, he was started on multivitamin and thiamine, which were later discontinued per the patient's request. Claritin was added for seasonal allergies. During treatment, his primary care counselor assigned was Agustina Batista. During treatment, he underwent individual and group therapy sessions on drug and alcohol abuse and dependency. He completed step 1 of Alcoholics Anonymous. Relapse triggers were identified, and relapse prevention plan was outlined. Spirituality issues were addressed. His was involved during the family portion of his treatment program. Concern that it was not very productive was noted and addressed during his treatment program. He was overall accepting of substance abuse problems. He completed step 1 of Alcoholics Anonymous. Ultimately, he had his visits and calls with his revoked, so he could focus on his treatment and recovery. Reason for discharge was completion of residential level treatment goals. Aftercare recommendations include sponsor assignment, outpatient counseling with active AA meeting involvement 3 to 5 days weekly. ADMIT: 06/22/2016 RM/LOC: Yesy [facility] MR#: [id number] [address] [id number] EMELY BETHEA [address] [place] [id number] General Discharge Summary SEX: M AGE: 31 : 1985 DISCHARGE MEDICATIONS: Medications at time of discharge include Claritin 10 mg daily. FINAL DISCHARGE DIAGNOSES: Include: 1. Alcohol use disorder, severe. 2. Tobacco use disorder in full sustained remission. 3. History of attention deficit hyperactivity disorder. 4. Seasonal allergies. PROCEDURES: Include drug and alcohol abuse dependency treatment and counseling. Please see his hospital record for the details. Craig Soares MD/ kelechi JOB #: [id number] CC: Craig Soares MD, Attending Physician NO FAMILY PHYSICIAN, Family Physician
== END 2016-07-20 10:34 | disposition home or self-care (01) | DRG 895 ==
LOC: ADTC 15:14
PROVIDERS: ADMIT Family Medicine
PROC: HZ43ZZZ Group Counseling for Substance Abuse Treatment, 12-Step (ICD-10-PCS; principal; 2016-06-22)
PROC: HZ34ZZZ Individual Counseling for Substance Abuse Treatment, Interpersonal (ICD-10-PCS; principal; 2016-06-22)
PROC: HZ63ZZZ Family Counseling for Substance Abuse Treatment (ICD-10-PCS; principal; 2016-06-22)
DX: F10.20 Alcohol dependence, uncomplicated (principal); F17.211 Nicotine dependence, cigarettes, in remission; J30.2 Other seasonal allergic rhinitis; Z63.72 Alcoholism and drug addiction in family; Z65.3 Problems related to other legal circumstances

== ENCOUNTER 2016-08-21 21:43 | Emergency (ER) | payer SELFPAY ==
--- NOTE | 2016-09-01 14:22 | ER ---
ADMIT: 08/21/2016 RM/LOC: ER [facility] MR#: [id number] [address] [address] EMELY BETHEA [address] [place] [id number] Emergency Room Report SEX: M AGE: 31 : 1985 DATE: 08/21/2016 ADDENDUM: CHIEF COMPLAINT: Stepped on nail. HISTORY OF PRESENT ILLNESS: This is a 31-year-old male who stepped on a nail a couple of days ago. He was worried about eventually getting tetanus, so he came into the ER. We did give him a tetanus shot. He also had been added on, but he just has not been feeling very good lately. He has been tired. He kind of aches all over, but does not really have any other symptoms besides the aching. COURSE IN THE IN EMERGENCY ROOM: I did check a CBC, which showed his white count was elevated at 15.4. [place] test was negative. Urine was normal. Chest x-ray was normal. CMP was normal. His CK was normal at 190. We rechecked his temp. He is now 101.6. I am going to give him some ibuprofen before being discharged. I told him more than likely, he picked up a viral infection, that he needs to just go home, push fluids, rest, use Motrin and Tylenol for fever, and then follow up with primary care physician in a couple of days to recheck his white count. CLINICAL IMPRESSION: 1. Fever. 2. Recent puncture wound to the foot which is not cellulitic and is healed. REJI Rosario / Misbah Lewis MD / kelechi JOB #: [id number] CC: Misbah Lewis MD, Attending Physician
== END 2016-08-21 23:20 | disposition home or self-care (01) ==
LOC: ER 21:43
DX: S91.332A Puncture wound without foreign body, left foot, initial encounter (principal); R50.9 Fever, unspecified; B34.9 Viral infection, unspecified; F17.210 Nicotine dependence, cigarettes, uncomplicated; Z79.899 Other long term (current) drug therapy; W45.0XXA Nail entering through skin, initial encounter